=== PATIENT | male | born 1975 | race Caucasian/White ===

== ENCOUNTER 2025-09-18 07:00 | Emergency (ER) | payer OTHER, SELFPAY ==
[2025-09-18 07:26] VITALS: BP 133/90
--- NOTE | 2025-09-18 08:20 | ED.GENMED ---
History of Present Illness
General
Chief Complaint: Post Operative Problem(s)
Source: patient and records
Exam Limitations: none
Time Seen by Provider: 09/18/25 08:12
Nursing documentation reviewed up to this point in time: agreed with
History of Present Illness
History of Present Illness:
49-year-old male with history as noted presents for surgical wound dehiscence. Patient had surgery on his right elbow with Dr. Amarjit Mcfadden 2 weeks ago--ulnar nerve decompression surgery. Yesterday in the office he had Steri-Strips removed
from his surgical incision, today had wound dehiscence and came to the ER for assessment�he says that he rolled over in bed and felt a pop and noted wound dehiscence.
Review of Systems
Review of Systems
All Other Systems: ROS reviewed and negative except as documented in HPI and ROS
Skin: Reports other (Wound dehiscence)
Phy Exam
Physical Exam
Physical Exam:
General: Well appearing and non-toxic
HEENT: protecting airway
Neck: appears supple
CV: No evidence of cyanosis
Resp: No accessory muscle use
Abd: Non-distended
Extremities: No deformities
Neuro: Alert
Psych: Normal affect
Skin: Clean appearing surgical incision right elbow with dehiscence of the wound�visible subcutaneous sutures broken
Scores
Heart Failure Risk
Heart Failure Risk Score: Not Applicable
Heart Score for Chest Pain Patients
STEMI patient?: Not applicable
Withdrawal Assessment of Alcohol
Withdrawal Assessment Completed?: Not applicable
Course
Vital Signs
Initial and Last Documented VS:
Initial Vital Signs
Temp Pulse Resp BP Pulse Ox
37.1 C 93 16 133/90 95
09/18/25 07:26 09/18/25 07:26 09/18/25 07:26 09/18/25 07:26 09/18/25 07:26
Last Documented Vital Signs
Temp Pulse Resp BP Pulse Ox
37.1 C 93 16 133/90 95
09/18/25 07:26 09/18/25 07:26 09/18/25 07:26 09/18/25 07:26 09/18/25 08:24
Procedures
Laceration Closure
Right Arm:
Status of Wound: clean
Size of Wound in cm: 5
Description of Wound Edges: sharp
Preparation: cleaned with Betadine
Anesthesia: 1% Lidocaine with epi
Revision/Debridement: routine- no revision
Wound exploration: extensive cleaning of contaminated wound
Type of Closure: layered closure
Skin Closure Material: 3-0 nylon (6) and 4-0 vicryl (1)
Number of sutures: 7
MDM/Problems Addressed
Differential Diagnosis Includes:
Wound dehiscence
MDM/Problems Addressed:
49-year-old male who is 2 weeks out from right elbow surgery presents with wound dehiscence. No other acute issues. Will discuss with orthopedic surgery for recommendations.
Discussed with orthopedist on-call for Micheline here at [place] who recommended discussing with his primary surgeon for definitive recommendations in the meantime can washout, redress, prophylactic antibiotic. Wound washed out by me at bedside,
loose Steri-Strips applied and clean dressing applied. Call placed by me to Dr. Amarjit Mcfadden and awaiting callback.
Discussed directly with patient's surgeon and sent pictures of wound for review�he recommended washout, closure with sutures here in the ER. Clean dressing and Cristobal wrap for support. Prophylactic antibiotics. He will see patient in the office.
*Pulse Oximetry
SaO2: 95
Oxygen Mode of Delivery: Room air
Patient hypoxic: no (95%)
*Critical Care Note
Total Time (30-74mins, 75-104mins- exclusive of procedures): Not Applicable
Data Reviewed
Source: patient and spouse
Patient Management
Discussion with other providers: Senior Designer (Discussed with orthopedic surgery)
ED Attending Note
-
Portions of this chart may have been created with voice recognition software.� Occasional wrong word or��sound alike� substitutions may have occurred due to the inherent limitations of voice recognition software.
Discharge Plan
Departure
Patient Disposition: Home (Routine Discharge)
Date of Disposition: 09/18/25
Time of Disposition: 10:13
Patient with high blood pressure during this ER visit?: Yes
Discharge Problem:
Dehiscence of wound of skin
Instructions: Wound Care (DC)
Prescriptions:
New
cephalexin 500 mg capsule
500 mg PO QID 7 Days Qty: 28 0RF
Referrals:
UNKNOWN - PT DOES,NOT KNOW [Family Provider]
Activity Restrictions/Additional Instructions:
You should have your surgical wound reassessed by your treating surgeon within the next week�you should call to schedule follow-up time to have the wound reassessed and have your sutures removed. If you notice any signs of infection please return
right away�you were prescribed an antibiotic to take prophylactically and you should take this for the full course as prescribed.
Thank you for visiting the Emergency Department at [facility].
1. Please schedule a follow up appointment as directed. Call first thing tomorrow morning to make an appointment.
2. If indicated, please take your medications as instructed and indicated on discharge paperwork.
3. If any of your symptoms do not improve, or persist, or become more severe within 6-12 hours, please return to the emergency department for further care.
4. Please return to the emergency department if you develop a headache, neck pain/stiffness, fever greater than 100.4F, chest pain, shortness of breath, persistent nausea, vomiting, slurred speech, difficulty walking, numbness/tingling, weakness,
signs of infection or any other symptoms that are worrisome to you.
Please call [phone] if you have any questions.
Interventions
Interventions:
*Risk Screen - Suicide Last Done: 09/18/25 07:26
*General Assessment Last Done: 09/18/25 07:26
*Neglect/Abuse Screening Last Done: 09/18/25 07:26
*ED COVID-19 Vaccine History Last Done: 09/18/25 07:26
*ED Influenza Vaccine History Last Done: 09/18/25 07:26
Discharge Date and Time
Print Language: SRI LANKAN
[2025-09-18 10:25] VITALS: BP 138/86
== END 2025-09-18 10:22 | disposition home or self-care (01) ==
LOC: EMR 07:00
PROVIDERS: EMERGENCY PHYSICIAN Emergency Medicine
DX: T81.31XA Disruption of external operation (surgical) wound, not elsewhere classified, initial encounter (principal)
CPT/HCPCS: 99282; 12032